=== PATIENT | male | born 1975 | race Caucasian/White ===

== ENCOUNTER 2017-09-30 10:17 | Inpatient (IN) | payer OTHER ==
[~2017-09-30] VITALS: Ht 177.8 cm; Wt 91.9 kg
[~2017-09-30 10:17] MED LIST: CHOL10003 PO; MULT-412 PO
[2017-09-30] MEDS ORDERED: LACTATED RINGERS 1,000 ML IV SCH (10:37)
[2017-09-30] MEDS ORDERED: MIDAZOLAM 1 MG/ML, 2ML ONE (10:41)
[2017-09-30] MEDS ORDERED: ONDANSETRON 2MG/ML, 2ML ONE (10:42)
[2017-09-30] MEDS ORDERED: PROPOFOL 10 MG/ML, 20ML ONE (10:42)
[2017-09-30] MEDS ORDERED: CEFAZOLIN 1,000 MG ONE (10:42)
[2017-09-30] MEDS ORDERED: SUCCINYLCHOLINE 20 MG/ML, 10ML ONE (10:42)
[2017-09-30] MEDS ORDERED: DEXAMETHASONE 4 MG/ML, 1ML ONE (10:42)
[2017-09-30] MEDS ORDERED: GLYCOPYRROLATE 0.2MG/1ML, 5ML ONE (10:42)
[2017-09-30] MEDS ORDERED: ROCURONIUM 10MG/ML,5ML ONE ×2 (10:42→10:46)
[2017-09-30] MEDS ORDERED: FENTANYL PF 250 MCG/5ML ONE (10:42)
[2017-09-30] MEDS ORDERED: NEOSTIGMINE 1 MG/ML, 10ML ONE (10:42)
[2017-09-30] MEDS ORDERED: LIDOCAINE-MPF 2% ,5ML ONE ×3 (10:43)
[2017-09-30 11:07] VITALS: BP 135/90
[2017-09-30] MEDS ORDERED: EPINEPHRINE 1 MG/ML, 1ML ONE (11:43)
[2017-09-30] MEDS ORDERED: LIDOCAINE-MPF 1%, 5ML ONE (11:43)
[2017-09-30] MEDS ORDERED: NEOSPORIN OINT, 15GM ONE (11:43)
[2017-09-30] MEDS ORDERED: PROPOFOL 10 MG/ML, 50ML ONE (12:09)
[2017-09-30] MEDS ORDERED: HYDROcodone/APAP 7.5-325MG/15ML UDC PO PRN (12:30)
[2017-09-30] MEDS ORDERED: OXYcodone 5 MG/5 ML ORAL.SOL UDC PO PRN (12:30)
[2017-09-30] MEDS ORDERED: ONDANSETRON ODT 8 MG PO PRN (12:30)
[2017-09-30] MEDS ORDERED: ACETAMINOPHEN 325 MG TABLET PO PRN ×2 (12:30→17:00)
[2017-09-30] MEDS ORDERED: LORazepam 2 MG/ML, 1ML IVPush PRN (12:30)
[2017-09-30] MEDS ORDERED: MEPERIDINE/PF 25MG/0.5ML IVPush PRN (12:30)
[2017-09-30] MEDS ORDERED: MORPHINE SULFATE 4 MG/ML, 1ML IVPush PRN (12:30)
[2017-09-30] MEDS ORDERED: FENTANYL PF 100 MCG/2ML IV PRN (12:30)
[2017-09-30] MEDS ORDERED: PROMETHAZINE 25 MG/ML, 1ML IV PRN (12:30)
[2017-09-30] MEDS ORDERED: FENTANYL PF 100 MCG/2ML ONE (13:30)
[2017-09-30] MEDS ORDERED: HYDROmorphone 2 MG/ML, 1ML ONE ×2 (16:10→18:54)
[2017-09-30] MEDS: HYDROmorphone 1 MG/ML, 1ML IV PRN ×2 (16:49→18:56)
[2017-09-30] MEDS ORDERED: ONDANSETRON 2MG/ML, 2ML IV PRN (17:00)
[2017-09-30] MEDS ORDERED: ACETAMINOPHEN 650 MG SUPP PR PRN (17:00)
[2017-09-30] MEDS ORDERED: HYDROcodone/APAP 7.5-325MG/15ML UDC GT PRN ×2 (17:00→21:00)
[2017-09-30 19:00] VITALS: BP 122/73
[2017-09-30] MEDS: SODIUM CHLORIDE FLUSH 10ML SYR IVF SCH (21:00)
[2017-09-30] MEDS: POTASSIUM CHLORIDE 20 MEQ in D5%-0.45% NACL 1,000 ML IV SCH (21:31)
[2017-09-30] MEDS: CEFAZOLIN PMX 2GM/50ML 50 ML IVPB SCH (21:32)
[2017-09-30 23:31] VITALS: BP 131/76
[2017-10-01 03:17] VITALS: BP 110/62
[2017-10-01] MEDS: CEFAZOLIN PMX 2GM/50ML 50 ML IVPB SCH (05:40)
[2017-10-01 08:11] VITALS: BP 100/55
[2017-10-01] MEDS ORDERED: CHOLECALCIFEROL 1,000 UNIT TABLET PO SCH (09:00)
[2017-10-01] MEDS ORDERED: MULTIVITAMIN 1 TABLET PO SCH (09:00)
[2017-10-01] MEDS: SODIUM CHLORIDE FLUSH 10ML SYR IVF SCH ×2 (09:00→21:00)
[2017-10-01] MEDS: POTASSIUM CHLORIDE 20 MEQ in D5%-0.45% NACL 1,000 ML IV SCH ×2 (09:13→20:53)
[2017-10-01 13:51] VITALS: BP 119/60
[2017-10-01] MEDS ORDERED: HYDR-3241 PO (14:58)
[2017-10-01] MEDS ORDERED: HYDROmorphone 2 MG/ML, 1ML ONE (15:13)
[2017-10-01] MEDS: HYDROmorphone 1 MG/ML, 1ML IV PRN (15:16)
[2017-10-01] MEDS ORDERED: HYDR473S51 EXT (19:06)
== END 2017-10-01 20:30 | disposition home or self-care (01) | DRG 328 ==
LOC: OUT 10:17 → 4NOR 15:30 → OUT 15:40 → 4NOR 15:40
PROVIDERS: ADMIT Specialist; ATTEND Specialist
PROC: 0DJ08ZZ Inspection of Upper Intestinal Tract, Via Natural or Artificial Opening Endoscopic (ICD-10-PCS; 2017-09-30)
PROC: 0DB10ZZ Excision of Upper Esophagus, Open Approach (ICD-10-PCS; principal; 2017-09-30 12:30)
DX: K22.5 Diverticulum of esophagus, acquired (principal); K29.70 Gastritis, unspecified, without bleeding; K20.9 Esophagitis, unspecified; Q38.7 Congenital pharyngeal pouch
CPT/HCPCS: 74018; J3490; 88304; J0171; J0690; J1100; J1170; J2250; J2405; J2704; J2710; J3010; J3480; J0330; J7120

== ENCOUNTER 2018-10-19 17:32 | Outpatient (CLI) | payer OTHER | END 2018-10-19 23:59 | disposition home or self-care (01) | LOC: RAD 17:32 | PROVIDERS: ATTEND Physician Assistant Surgical | DX: S86.111A Strain of other muscle(s) and tendon(s) of posterior muscle group at lower leg level, right leg, initial encounter (principal); M79.89 Other specified soft tissue disorders; X58.XXXA Exposure to other specified factors, initial encounter; Y93.89 Activity, other specified; Y92.89 Other specified places as the place of occurrence of the external cause; Y99.8 Other external cause status ==